=== PATIENT | female | born 1955 | race Caucasian/White ===

== ENCOUNTER 2022-10-24 20:17 | Emergency (ER) | payer OTHER ==
[~2022-10-24] VITALS: Ht 152.4 cm; Wt 117.9 kg
[2022-10-24 20:20] VITALS: BP 129/83
--- NOTE | 2022-10-24 20:28 | NUR ---
PT BIBA [facility] ER BED 8
--- NOTE | 2022-10-24 20:28 | NUR ---
Eric wallis in ED - 10/24/22 at 2028 by [facility] PT BIBA B[facility] ER BED 8
--- NOTE | 2022-10-24 20:48 | NUR ---
X-Ray at bedside.
--- NOTE | 2022-10-24 21:04 | NUR ---
Patient being evaluated by physician at bedside.
[2022-10-24] MEDS ORDERED: KETOROLAC 60 MG/2 ML VIAL IM ONE (21:10)
[2022-10-24] MEDS ORDERED: IBUP-2213 PO (21:48)
[2022-10-24] MEDS ORDERED: ACET-8905 PO (21:48)
--- NOTE | 2022-10-24 22:13 | NUR ---
ATTEMPTED TO WALK PATIENT PT. STATES UNABLE TO PUT PRESSURE ON THE RIGHT ANKLE. PER PT WALKS AROUND WITHOUT AN ASSISTIVE DEVICE. PT HAS JANETTE WRAP ON ANKLE. ER MADE AWARE.
--- NOTE | 2022-10-24 22:19 | NUR ---
PT DISCHARGED PER ORDERS. TOLD PATIENT THAT WE OFFER UBER RIDES TO GO HOME BUT REFUSING THE UBER RIDE. PER PT HAS NO MONEY BUT IT WOULD BE THROUGH HOSPITAL.
--- NOTE | 2022-10-24 22:23 | NUR ---
OFFERED PT UBER. PER PT WILL ALLOW FOR UBER.
--- NOTE | 2022-10-24 22:47 | NUR ---
EDUCATED PATIENT ON USE OF WALKER, PT ABLE TO USE WALKER ABOUT 10FT WITH ASSISTED DEVICE.
[2022-10-24 22:51] VITALS: BP 129/83
--- NOTE | 2022-10-24 22:51 | NUR ---
Patient discharged. Written and verbal after care instructions given and explained about ankle pain. Patient alert, oriented and verbalized understanding of instructions. Wheel Chair Assisted with to lobby as patient will await for an uber that the hospital provided. All questions addressed prior to discharge. ID band removed. Patient advised to follow up with PMD. Rx of Hydrocodon-Acetaminophen 5-325 and Ibuprofen given. Patient educated on indication of medication including possible reaction and side effects. Opportunity to ask questions provided and answered.
--- NOTE | 2022-10-25 09:50 | NUR ---
LATE ENTRY. CALLED &SPOKE WITH PT TO INFORM HER OF RADIOLOGY DISCPREPANCY AND TO RETURN TO ER PER DR PIÑA.
== END 2022-10-24 22:51 | disposition home or self-care (01) ==
LOC: EDSEX 20:17 → MED 20:17
DX: S09.90XA Unspecified injury of head, initial encounter (principal); M25.572 Pain in left ankle and joints of left foot; I11.0 Hypertensive heart disease with heart failure; I50.9 Heart failure, unspecified; W19.XXXA Unspecified fall, initial encounter; Y93.89 Activity, other specified; Y92.89 Other specified places as the place of occurrence of the external cause; Y99.8 Other external cause status
CPT/HCPCS: 73610; 96372; 99283; J1885; Q0092

== ENCOUNTER 2022-10-25 11:06 | Emergency (ER) | payer OTHER ==
[~2022-10-25] VITALS: Ht 162.6 cm; Wt 95.3 kg
[~2022-10-25 11:06] MED LIST: ACET-8905 PO; IBUP-2213 PO
[2022-10-25 11:07] VITALS: BP 120/71
[2022-10-25] MEDS ORDERED: HYDROcodone/APAP 5/325 MG 1 TAB TAB PO ONE (12:15)
--- NOTE | 2022-10-25 12:56 | NUR ---
WALKING BOOT APPLIED TO L FOOT
--- NOTE | 2022-10-28 09:28 | NUR ---
PT RETURNED WRONG SIZED ORTHO-BOOT FROM 10-25-22 AND WAS PLACED ON NEW CORRECT SIZED ORTHO-BOOT ON 10-28-22, [facility]NL BEFORE AND AFTER. DISCOTHEQUE DANCER NOTIFED.
== END 2022-10-25 13:05 | disposition home or self-care (01) ==
LOC: MED 11:06
DX: S92.352A Displaced fracture of fifth metatarsal bone, left foot, initial encounter for closed fracture (principal); I11.0 Hypertensive heart disease with heart failure; I50.9 Heart failure, unspecified; J45.909 Unspecified asthma, uncomplicated; Z79.899 Other long term (current) drug therapy; W19.XXXA Unspecified fall, initial encounter; Y93.89 Activity, other specified; Y92.89 Other specified places as the place of occurrence of the external cause; Y99.8 Other external cause status
CPT/HCPCS: 73630; 99283

== ENCOUNTER 2024-07-08 10:44 | Emergency (ER) | payer OTHER ==
[~2024-07-08] VITALS: Ht 154.9 cm; Wt 106.1 kg
[2024-07-08 10:48] VITALS: BP 147/92; PULSE 64; RESP 20; TEMP 97.7; O2SAT 95
[2024-07-08 12:18] LABS: BASOPHILS # (AUTO) 0.1 K/uL (0.00-0.22); BASOPHILS % (AUTO) 0.8 % (0.0-2.0); EOSINOPHILS # (AUTO) 0.3 K/uL (0-0.4); EOSINOPHILS % (AUTO) 3.7 % (0.0-4.0); HEMATOCRIT 42.2 % (36-48); HEMOGLOBIN 13.9 g/dL (12.0-16.0); LYMPHOCYTES # (AUTO) 1.9 K/uL (2.5-16.5); LYMPHOCYTES % (AUTO) 26.7 % (20.5-51.1); MEAN CORPUSCULAR HEMOGLOBIN 30 pg (27-31); MEAN CORPUSCULAR HGB CONC 33 g/dL (33-37); MEAN CORPUSCULAR VOLUME 89.9 fL (80-94); MONOCYTES # (AUTO) 0.6 K/uL (0.8-1.0); MONOCYTES % (AUTO) 8.5 % (1.7-9.3); NEUTROPHILS # (AUTO) 4.4 K/uL (1.8-7.7); NEUTROPHILS % (AUTO) 60.3 % (42.2-75.2); PLATELET COUNT (AUTO) 228 K/uL (140-450); RED BLOOD CELL COUNT(AUTO) 4.69 MIL/uL (4.20-5.40); RED CELL DISTRIBUTION WIDTH 14.7 % (11.6-13.7); WHITE BLOOD COUNT (AUTO) 7.3 K/uL (4.8-10.8)
[2024-07-08 12:30] LABS: ANION GAP 12.3 (8-16); CALCIUM 8.8 mg/dL (8.5-10.1); CARBON DIOXIDE 27.4 mmol/L (21-32); CREATININE 1.2 mg/dL (0.6-1.3); POTASSIUM 3.7 mmol/L (3.5-5.1)
[2024-07-08 12:39] LABS: ALANINE AMINOTRANSFERASE 17 U/L (12-78); ALBUMIN 3.1 g/dL (3.4-5.0); ALKALINE PHOSPHATASE 68 U/L (50-136); ASPARTATE AMINOTRANSFERASE 16 U/L (15-37); BILIRUBIN,DIRECT 0.2 mg/dL (0.0-0.3); CREATINE KINASE, TOTAL 77 U/L (26-192); TOTAL BILIRUBIN 0.7 mg/dL (0.0-1.0); TOTAL PROTEIN, SERUM 6.9 g/dL (6.4-8.2)
[2024-07-08 12:50] VITALS: O2SAT 97
[2024-07-08] MEDS ORDERED: FURO-570 PO (13:10)
[2024-07-08] MEDS ORDERED: APIX5TAB PO (13:10)
[2024-07-08] MEDS ORDERED: AMIO200T25 PO (13:10)
[2024-07-08] MEDS ORDERED: SPIR50TA PO (13:15)
[2024-07-08 14:55] LABS: APPEARANCE,URINE CLEAR (CLEAR); BILIRUBIN,URINE NEGATIVE (NEGATIVE); BLOOD, URINE NEGATIVE (NEGATIVE); COLOR,URINE YELLOW (YELLOW); LEUKOCYTE ESTERASE ,URINE NEGATIVE (NEGATIVE); NITRITE, URINE NEGATIVE (NEGATIVE); PROTEIN,URINE NEGATIVE (NEGATIVE); UGLUCOSE NEGATIVE (NEGATIVE); UROBILINOGEN,URINE 0.2 EU/dL (0.2 - 1)
[2024-07-08] MEDS: NACL 0.9% 1,000 ML IV ONE (15:14)
[2024-07-08 17:30] VITALS: BP 143/80; PULSE 82; RESP 18; TEMP 97.6; O2SAT 95
== END 2024-07-08 17:30 | disposition short-term general hospital (02) ==
LOC: MED 10:44
DX: I71.21 Aneurysm of the ascending aorta, without rupture (principal); R53.1 Weakness; Z20.822 Contact with and (suspected) exposure to COVID-19; M79.605 Pain in left leg; M79.652 Pain in left thigh; R41.82 Altered mental status, unspecified; J45.909 Unspecified asthma, uncomplicated; I48.91 Unspecified atrial fibrillation; I11.0 Hypertensive heart disease with heart failure; I50.9 Heart failure, unspecified; Z79.899 Other long term (current) drug therapy; Z79.01 Long term (current) use of anticoagulants
CPT/HCPCS: 36415; 70450; 71045; 71275; 80048; 80076; 81003; 82550; 82948; 83880; 84484; 85025; 85379; 87426; 93005; 93971; 96360; 99291; J7030; Q0092; Q9967